=== PATIENT | male | born 1980 | race African-American/Black ===

== ENCOUNTER 2019-12-04 22:05 | Emergency (ER) | payer OTHER, MEDICARE ==
--- NOTE | 2019-12-04 22:12 | ER Document Report ---
ED General - General Chief Complaint: Near Syncope Stated Complaint: SYNCOPE Time Seen by Provider: 12/04/19 22:07 - HPI Notes: Patient is a 39-year-old male who presents to the emergency department for evaluation. He was brought in by his girlfriend in private vehicle. Evidently the patient was working outside in the heat today. He walked for 6 miles. He only ate 2 tacos today. He was at the bar, did have 2 alcoholic drinks. He then fell off the stool, striking his head. He has been altered since then. No reports of seizure activity, no incontinence. The patient denies any pain at this time. - Related Data Allergies/Adverse Reactions: Sulfa (Sulfonamide Antibiotics) Allergy (Verified 12/04/19 22:10) Home Medications: Zyrtec and ibuprofen as needed Past Medical History - General Information source: Patient - Social History Smoking Status: Never Smoker Frequency of alcohol use: Occasional Drug Abuse: Marijuana Family History: None, Reviewed & Not Pertinent Past Surgical History: Reports: Hx Orthopedic Surgery Review of Systems - Review of Systems Constitutional: No symptoms reported EENT: No symptoms reported Cardiovascular: See HPI Respiratory: No symptoms reported Gastrointestinal: No symptoms reported Genitourinary: No symptoms reported Musculoskeletal: No symptoms reported Skin: No symptoms reported Neurological/Psychological: No symptoms reported Physical Exam - Vital signs Vitals: Pulse Ox 99 12/04/19 22:05 - Notes Notes: This is a very pleasant 39-year-old male, who appears his stated age, no acute distress. He is slow to answer questions, very deliberate in his movements, but cooperative with examiner. Vital signs reviewed, please refer to chart. Head is normocephalic, atraumatic. Pupils equal round, reactive to light. Neck is supple without meningismus. Examination of the spine yields no midline tenderness or step-off. No paraspinal musculature tenderness is appreciated. Heart is regular rate and rhythm. Lungs are clear to auscultation bilaterally. Chest wall excursion is equal, chest wall is nontender. Abdomen is soft, nontender, normoactive bowel sounds throughout. Extremities without cyanosis, clubbing. Posterior calves are nontender. Peripheral pulses are equal. Skin is warm and dry. Patient is awake and alert. He tells me is January, tells me he is in an office building. Otherwise, cranial nerves II through XII are grossly intact without focal neurological deficits. Strength is +5-5 bilateral upper and lower extremities. Sensation is intact, reflexes are symmetrical. Course - Re-evaluation Re-evalutation: 12/04/19 22:12 Patient presents to the emergency department for evaluation. He was placed immediately on a quality assurance monitor, IV was established. Accu-Chek was ordered and was found to be over 200. I ordered IV fluids, blood work, imaging. He is currently stable, we will continue to monitor. 12/04/19 23:23 Went in to reassess patient. He is more alert, speaking more appropriately. This is per his girlfriend as well. He does complain of a headache, patient ordered Tylenol. Still awaiting urine sample, patient has had a little over a liter of LR infused. We talked about his hyperglycemia. He was told in the past that he had some elevated blood sugar and might be "borderline diabetic." He states that he is followed with his primary care doctor who has not seemed concerned. We discussed perhaps an A1c as an outpatient, will write this on his discharge papers. Otherwise, awaiting urine. 12/05/19 00:56 Urinalysis shows a low specific gravity. Patient is back to baseline per himself as well as his significant other. We will discharge him home. He is to follow-up with primary care, return to the ED with worsening. - Vital Signs Vital signs: Temp Pulse Resp BP Pulse Ox 98.3 F 16 117/70 99 12/04/19 22:07 12/05/19 00:01 12/05/19 00:01 12/05/19 00:01 - Laboratory Result Diagrams: 12/04/19 22:02 12/04/19 22:02 Laboratory results interpreted by me: 12/04/19 12/04/19 22:02 23:48 Sodium 136.6 L Carbon Dioxide 21 L Creatinine 1.47 H Est GFR (MDRD) Non-Af 54 L Glucose 192 H Creatine Kinase 479 H Urine Ascorbic Acid 20 H - Diagnostic Test Radiology reviewed: Reports reviewed Radiology results interpreted by me: 12/05/19 01:02 Chest X-Ray 12/04/19 22:07 IMPRESSION: Unremarkable single view of the chest. No acute process. Head CT 12/04/19 22:08 IMPRESSION: No acute intracranial abnormality is identified. Discharge - Discharge Clinical Impression: Hyperglycemia, Syncope and collapse Condition: Stable Disposition: HOME, SELF-CARE Instructions: Head Injury Precautions ([facility]), Hyperglycemia ([facility]), Syncopal Episode ([facility]) Additional Instructions: Rest, stay well-hydrated. [facility]. Your blood sugar was elevated here. This may be a reaction to stress, but this should be evaluated further, perhaps with a hemoglobin A1c by your primary care provider. If you develop increased confusion, weakness, or any other new or concerning symptoms, please return immediately to the ER for further evaluation.
[2019-12-04] MEDS: RINGERS SOLUTION,LACTATED 1,000 ML IV PRN ×2 (22:25→23:30)
[2019-12-04 22:33] LABS: ALBUMIN 4.3 g/dL (3.5-5.0); ALCOHOL 46 mg/dL (NONE DETECTED); ALKALINE PHOSPHATASE 56 U/L (38-126); ANION GAP 12 (5-19); ASPARTATE AMINO TRANSFERASE 33 U/L (17-59); BILIRUBIN,DIRECT 0.2 mg/dL (0.0-0.4); BILIRUBIN,TOTAL 0.3 mg/dL (0.2-1.3); BLOOD UREA NITROGEN 16 mg/dL (7-20); CARBON DIOXIDE 21 mmol/L (22-30); CHLORIDE 104 mmol/L (98-107); CREATINE KINASE 479 U/L (55-170); GLUCOSE 192 mg/dL (75-110); POTASSIUM 4.1 mmol/L (3.6-5.0); TOTAL PROTEIN 7.3 g/dL (6.3-8.2)
[2019-12-04 22:36] LABS: ABSOLUTE BASOPHILS # (AUTO) 0.1 10^3/uL (0.0-0.2); ABSOLUTE EOSINOPHILS # (AUTO) 0.1 10^3/uL (0.0-0.6); ABSOLUTE LYMPHOCYTES (AUTO) 2.7 10^3/uL (0.5-4.7); ABSOLUTE MONOCYTES (AUTO) 0.8 10^3/uL (0.1-1.4); ABSOLUTE NEUT (AUTO) 3.5 10^3/uL (1.7-8.2); BASOPHILS % (AUTO) 0.7 % (0-2); HEMATOCRIT 42.6 % (37.9-51.0); HEMOGLOBIN 14.1 g/dL (13.5-17.0); LYMPHOCYTES % (AUTO) 37.7 % (13-45); MEAN CORPUSCULAR HEMOGLOBIN 28.6 pg (27.0-33.4); MEAN CORPUSCULAR HGB CONC 33.1 g/dL (32.0-36.0); MEAN CORPUSCULAR VOLUME 86 fl (80-97); MONOCYTES % (AUTO) 11.1 % (3-13); PLATELET COUNT 254 10^3/uL (150-450); RED BLOOD COUNT 4.93 10^6/uL (4.35-5.55); RED CELL DISTRIBUTION WIDTH 13.6 % (11.5-14.0); SEGMENTED NEUTROPHILS % (AUTO) 48.5 % (42-78); TOTAL CELLS COUNTED % (AUTO) 100 %; WHITE BLOOD COUNT 7.2 10^3/uL (4.0-10.5)
--- NOTE | 2019-12-04 22:49 | RADIOLOGY REPORT (SQ) ---
EXAM DESCRIPTION: CT HEAD WITHOUT IV CONTRAST COMPLETED DATE/TME: 12/04/2019 22:08 CLINICAL HISTORY: 39 years Male altered mental status COMPARISON: None. TECHNIQUE: Contiguous axial CT images obtained through the brain without IV contrast. This exam was performed according to our department optimization program which includes automated exposure control, adjustment of the mA and/or kv according to patient size and/or use of iterative reconstruction technique. FINDINGS: The ventricles and sulci are within normal limits for the patient's age. No midline shift or mass effect. No masses identified. No acute intracranial hemorrhage. No fluid or significant mucosal thickening in the visualized paranasal sinuses. No depressed calvarial fractures. IMPRESSION: No acute intracranial abnormality is identified.
--- NOTE | 2019-12-04 22:55 | RADIOLOGY REPORT (SQ) ---
EXAM DESCRIPTION: X-ray, single view of the chest CLINICAL HISTORY: 39 years Male, syncope COMPARISON: None. FINDINGS: Lungs: Lungs are clear. No pneumonia or edema. No pneumothorax or pleural effusion. Mediastinum: Cardiac and mediastinal silhouette are normal. Bones: Osseous structures are normal. IMPRESSION: Unremarkable single view of the chest. No acute process.
[2019-12-04] MEDS ORDERED: ACETAMINOPHEN 325 MG TABLET PO ONE (23:22)
[2019-12-05 00:34] LABS: APPEARANCE,URINE CLEAR; BILIRUBIN,URINE NEGATIVE (NEGATIVE); COLOR,URINE YELLOW; GLUCOSE, URINE NEGATIVE (NEGATIVE); KETONES,URINE NEGATIVE (NEGATIVE); LEUKOCYTE ESTERASE,URINE NEGATIVE (NEGATIVE); NITRITE,URINE NEGATIVE (NEGATIVE); PROTEIN,URINE NEGATIVE (NEGATIVE); URINE SPECIFIC GRAVITY 1.011; UROBILINOGEN,URINE NEGATIVE mg/dL (<2.0)
[2019-12-05 00:36] LABS: ADD MANUAL MICROSCOPIC YES; RBC,URINE 0-1 /HPF
[2019-12-05 02:06] VITALS: BP 117/67
--- NOTE | 2019-12-05 07:45 | EKG REPORT ---
SEVERITY:- ABNORMAL ECG - SINUS RHYTHM CONSIDER LEFT VENTRICULAR HYPERTROPHY ST ELEVATION SUGGESTS NORMAL VARIANT : Confirmed by: Amanuel Demarco MD 05-Dec-2019 07:44:16
== END 2019-12-05 02:03 | disposition home or self-care (01) ==
LOC: ER 22:05 → EDBD 22:05 → ER 12-05 02:03
DX: R55 Syncope and collapse (principal); R73.9 Hyperglycemia, unspecified; R51 Headache; W08.XXXA Fall from other furniture, initial encounter; Y92.59 Other trade areas as the place of occurrence of the external cause; Z88.2 Allergy status to sulfonamides
CPT/HCPCS: 93005; 99285; 96360; 96361; 36415; 80307; 82550; 83735; 85025; 80053; 81001; 84484; 71045; 70450; 93010; J7120; 82962